=== PATIENT | female | born 1965 | race American Indian/Alaskan Native ===

== ENCOUNTER 2017-09-24 09:20 | Outpatient (CLI) | payer MEDICAID | END 2017-09-24 09:21 | disposition home or self-care (01) | LOC: ECHO 09:20 → CATHLABREC 09:20 → ECHO 09:21 → EDSTATUS 10:00 | PROVIDERS: ATTEND Internal Medicine Cardiovascular Disease | DX: I08.1 Rheumatic disorders of both mitral and tricuspid valves (principal); R94.39 Abnormal result of other cardiovascular function study | CPT/HCPCS: 93306 ==